=== PATIENT | female | born 1985 | race Caucasian/White ===

== ENCOUNTER 2017-01-20 13:49 | Emergency (ER) | payer MEDICAID ==
--- NOTE | ~2017-01-20 | ER ---
PATIENT'S NAME: PATRIA BONE [facility] AGE: 31 Y [address] ROOM: [place] [address] LOCATION: ED ADMIT DATE: 01/20/2017 ER/Outpatient Report DISCHARGE DATE: 01/20/2017 FAMILY PHYSICIAN: PHYSICIAN, NO ATTENDING PHYSICIAN: Juaquin Denson Time of Arrival: 1402 hours. Time of Evaluation: 1407 hours. CHIEF COMPLAINT: Right-side facial swelling. HISTORY OF PRESENT ILLNESS: The patient has a cystic acne lesion of the right upper forehead area, that she said started yesterday. She says it is causing pain into the right ear, down into the jaw, and has made her nauseated and have a headache. She states she has taken Tylenol without any relief. Rates her pain at a 9/10. Denies any vision changes. Has not had a fever. ALLERGIES: CODEINE AND LODINE. MEDICATIONS: States has taken Tylenol for the pain. PAST MEDICAL HISTORY: Benign. PAST SURGICAL HISTORY: Gallbladder, x2. SOCIAL HISTORY: She does smoke half pack per day and has for the last 15 years. Denies use of drugs or alcohol. REVIEW OF SYSTEMS: All negative other than those mentioned in the HPI. PHYSICAL EXAMINATION: VITAL SIGNS: She states she is 5 feet 3 inches, weight is 74 kg, blood pressure is 119/79, pulse of 96, respirations 16, temperature of 96.5, O2 saturation is 97% on room air. GENERAL: She is awake, alert, and oriented x4. SKIN: Her skin is pink, warm, and dry. RESPIRATIONS: Even and nonlabored. PATIENT'S NAME: PATRIA BONE [facility] AGE: 31 Y [address] ROOM: [place], [place] [address] LOCATION: ED ADMIT DATE: 01/20/2017 ER/Outpatient Report DISCHARGE DATE: 01/20/2017 FAMILY PHYSICIAN: PHYSICIAN, NO ATTENDING PHYSICIAN: Juaquin Denson HEENT: Pupils are equal and reactive to light. Extraocular movement is intact. NEURO: Cranial nerves 2 through 12 are grossly intact. Posterior oropharynx is clear. NECK: Supple. No lymphadenopathy. The patient has a cystic type lesion to the right forehead. Does have a white head with redness around it. No drainage at this time. IMPRESSION: 1. Cystic acne lesion. 2. Headache. PLAN: The patient was given Toradol 60 mg IM. She is to go home. Pack it with warm wet washcloth. Tylenol or ibuprofen for discomfort. Follow up with her primary provider if symptoms persist or worsen. She verbalized understanding. A note was written to excuse her from work today. THEE JACKSON APRN FOR MD ALONA MORAN/silvina /[id number] d: 01/20/172018 t: 01/23/171809, OUTPATIENT REPORT
== END 2017-01-20 14:36 | disposition disaster alternative care site (69) ==
LOC: GMED 13:49
DX: L70.0 Acne vulgaris (principal); R51 Headache; F17.210 Nicotine dependence, cigarettes, uncomplicated; Z98.890 Other specified postprocedural states
CPT/HCPCS: J1885

== ENCOUNTER 2017-01-22 11:10 | Emergency (ER) | payer MEDICAID ==
--- NOTE | ~2017-01-22 | ER ---
PATIENT'S NAME: PATRIA BONE [facility] AGE: 31 Y [address] ROOM: [place] [address] LOCATION: [facility] ADMIT DATE: 01/22/2017 ER/Outpatient Report DISCHARGE DATE: 01/22/2017 FAMILY PHYSICIAN: PHYSICIAN, NO ATTENDING PHYSICIAN: Juaquin Denson CHIEF COMPLAINT: Right-sided head pain. HISTORY OF PRESENT ILLNESS: The patient states that for the last few days, she has had a large lump on the right side of her head that has been getting worse. It is causing pain to radiate down into the side of her face and her jaw. She was seen a few days ago for the same, instructed to use warm compresses and antiinflammatories, and she states that things have been worsening. The patient states that she has been taking those medications and has been otherwise doing okay except for the medications that are not helping her symptoms. She states that she tried to "pop" the area, but it did not work and the pain is too bad. PAST MEDICAL HISTORY: Documented on the record and reviewed by me. SOCIAL HISTORY: Documented on the record and reviewed by me. MEDICATIONS: Documented on the record and reviewed by me. ALLERGIES: DOCUMENTED ON THE RECORD AND REVIEWED BY ME. REVIEW OF SYSTEMS: Review of systems was performed and negative except as noted in the HPI. PHYSICAL EXAMINATION: VITAL SIGNS: Blood pressure 134/80, pulse 102, respiratory rate is 18, temperature is 99.0, and SpO2 is 100% on room air. Pain is rated 9/10. GENERAL: Age appropriate female, in obvious pain, sitting in a position in a chair, crying, in no respiratory distress. NEURO: The patient is awake and alert. GCS is 15. No focal deficits or asymmetry. HEENT: The patient is normocephalic and atraumatic. There is a boil in the right temporal region above the hairline with a clear head. It is tender to palpation throughout. There is no tenderness along the temporal artery. The TM and auricular tissues are normal to inspection on the right side. The left PATIENT'S NAME: PATRIA BONE [facility] AGE: 31 Y [address] ROOM: [place] [address] LOCATION: ED ADMIT DATE: 01/22/2017 ER/Outpatient Report DISCHARGE DATE: 01/22/2017 FAMILY PHYSICIAN: PHYSICIAN, NO ATTENDING PHYSICIAN: Juaquin Denson side is unremarkable to inspection. The extraocular movements are intact. Eyes are PERRL. NECK: Supple. Trachea is midline. CHEST: Even and unlabored respirations. ABDOMEN: Normal to inspection. EXTREMITIES: Warm and well perfused. SKIN: Clean, dry, and intact except for the boil of the right temporal region. LABORATORY DATA AND X-RAYS: None. IMPRESSION: Boil to the right temporal region. EMERGENCY DEPARTMENT COURSE: The patient was evaluated as above. Ultrasound was used to confirm the presence of free fluid inside of the boil. The area was anesthetized with 4% topical lidocaine for 5 minutes. The patient tolerated incision well, but did not tolerate expression of fluid very well. The area was cleaned with alcohol again and the tissue was anesthetized with performing a nerve block of the inferior tissues using lidocaine with epinephrine, a total of 1 mL was placed. That caused the patient worsening pain, but overall improvement. Ultimately, I was able to open up the wound and eventually express all available purulent material. Bleeding was adequately controlled. The wound will be left open. Ice pack was placed. Her headache was treated with Compazine, Benadryl, and Toradol. She was discharged in good condition. She should return immediately if worse or if her symptoms are inadequately controlled. I explained that Tylenol and ibuprofen will be most useful to help minimize any inflammation at the site as that is causing her current pain now that we have allowed it to drain. She expressed her understanding and discharged in good condition. MD CLAIRE MORAN/silvina /[id number] d: 01/22/172050 t: 01/23/171810, OUTPATIENT REPORT
== END 2017-01-22 12:38 | disposition disaster alternative care site (69) ==
LOC: GMED 11:10
PROC: 0H90XZZ Drainage of Scalp Skin, External Approach (ICD-10-PCS; principal; 2017-01-22)
DX: L02.02 Furuncle of face (principal)
CPT/HCPCS: J0780; J1885

== ENCOUNTER 2017-04-29 17:48 | Emergency (ER) | payer MEDICAID ==
--- NOTE | ~2017-04-29 | ER ---
PATIENT'S NAME: PATRIA BONE [facility] AGE: 31 Y [address] ROOM: [place] [address] LOCATION: ED ADMIT DATE: 04/29/2017 ER/Outpatient Report DISCHARGE DATE: 04/29/2017 FAMILY PHYSICIAN: PHYSICIAN, NO ATTENDING PHYSICIAN: Orlin Swanson Time of Arrival: 1748 hours. Time of Evaluation: 1820 hours. CHIEF COMPLAINT: Migraine headache. HISTORY OF PRESENT ILLNESS: This is a 31-year-old female who presents to the ER with the migraine headache that has been going on for the past 24 hours. The patient states she has a history of migraine headaches that is similar to her previous headaches and is located on the left side of her forehead. This is making her have photophobia, nausea, and vomiting. She denies any recent illness. No fever or chills. No other problems at this time. She did take some Tylenol earlier with no relief of her symptoms. ALLERGIES: CODEINE. MEDICATIONS: Tylenol. PAST MEDICAL HISTORY: Migraines. PAST SURGICAL HISTORY: Cholecystectomy and x2. SOCIAL HISTORY: She smokes half pack a day for last 20 years. Denies any drug or alcohol use. REVIEW OF SYSTEMS: All systems reviewed and were negative with the exception of those discussed in the HPI. PHYSICAL EXAMINATION: VITAL SIGNS: Height 5 feet 3 inches stated, weight 74.4 kg taken, blood pressure is 143/79, pulse 88, respirations 16, temperature 95.7 degrees tympanically, and saturations 99% on room air. Andres Coma score is 15. GENERAL: Alert, calm, well-developed female, in [id number] distress. PATIENT'S NAME: PATRIA BONE [facility] AGE: 31 Y [address] ROOM: [place] [address] LOCATION: ED ADMIT DATE: 04/29/2017 ER/Outpatient Report DISCHARGE DATE: 04/29/2017 FAMILY PHYSICIAN: PHYSICIAN, MARIA FERNANDA ATTENDING PHYSICIAN: Orlin Swanson HEENT: Head: Normocephalic. Eyes: Pupils are equal and reactive to light. Ears: TMs display good light reflexes bilaterally. Nose: Turbinates pink with no drainage. Throat: No exudates or erythema. She does display moist mucous membranes. NECK: Supple. No nuchal rigidity. LUNGS: Clear to auscultation bilaterally. No wheezes or crackles. HEART: Regular rate and rhythm. ABDOMEN: Soft, nontender. She has good bowel sounds throughout. EXTREMITIES: No clubbing or cyanosis. She does have full range of motion bilaterally, equal strength bilaterally. LABORATORY DATA AND X-RAYS: None were done. IMPRESSION: Migraine headache. ASSESSMENT/PLAN: The patient states that usually Toradol and Phenergan help her, so we did provide her with those medications intramuscularly. We will dismiss the patient to home. She needs to rest in a quiet dark area. Continue to push fluids and she should follow up with primary care physician if needed. The patient understands and agrees with care. ALIYA TRUONG PA-C FOR DO HALLIE BARNHART/silvina /[id number] d: 04/30/17 0104 t: 05/10/17 0651, OUTPATIENT REPORT
== END 2017-04-29 19:03 | disposition disaster alternative care site (69) ==
LOC: GMED 17:48
DX: G43.909 Migraine, unspecified, not intractable, without status migrainosus (principal); F17.210 Nicotine dependence, cigarettes, uncomplicated; Z88.5 Allergy status to narcotic agent; Z90.49 Acquired absence of other specified parts of digestive tract; Z98.890 Other specified postprocedural states
CPT/HCPCS: J1885; J2550